=== PATIENT | male | born 1945 | race Caucasian/White ===

== ENCOUNTER 2017-08-17 13:38 | Emergency (ER) | payer MEDICARE, OTHER ==
[2017-08-17] MEDS ORDERED: LORazepam TAB(*) 1 MG PO ONE (15:18)
[2017-08-17] MEDS ORDERED: Ketorolac INJ* 30 MG/ML 1 ML VIAL IM ONE (15:18)
--- NOTE | 2017-08-17 16:06 | RAD ---
Indication: Lumbar spine pain post fall. Comparison: February 04, 2011 CT. Technique: Noncontrast CT lumbar sacral spine. Multiplanar reformation. Report: Negative for paraspinal hematoma. Negative for fracture or spondylolysis at any level. Normal vertebral alignment without spondylolisthesis at any level. T12-L1: Unremarkable disc level for age without acquired spinal stenosis. L1-L2: Unremarkable disc level for age without acquired spinal stenosis. L2-L3: Schmorl node endplate herniations at the inferior endplate of L2. Moderate annular disc bulge. Degenerative spondylosis and facet joint osteoarthritis results in mild to moderate acquired central canal stenosis and mild to moderate bilateral foraminal stenosis. L3-L4: Moderate annular disc bulge. Degenerative spondylosis and facet joint osteoarthritis results in moderately severe acquired central canal stenosis and mild to moderate bilateral foraminal stenosis. L4-L5: Mild annular disc bulge which along with posterior element hypertrophy results in moderate acquired central canal stenosis and mild RIGHT unilateral foraminal stenosis. L5-S1: Unremarkable disc level for age without acquired spinal stenosis. IMPRESSION: 1. No evidence for lumbar sacral spine fracture or traumatic malalignment. 2. Multilevel degenerative spondylosis and facet joint osteoarthritis with associated acquired spinal stenosis as described.
[2017-08-17 19:09] VITALS: BP 141/92
--- NOTE | 2017-08-17 20:39 | ED ---
Brayan Zeng Natalie scribed for Austen Kate MD on 08/17/17 at 1530 . Adult Trauma - HPI Summary HPI Summary: The patient is a 72 y/o M presenting to the ED c/o severe left-sided flank and back pain s/p falling down two flights of stairs last night. The pain was not apparent directly after the fall, but the pain started during the night and persisted through this morning. The pain is rated 9/10 in severity. The pain is alleviated by nothing and aggravated by movement and palpation. He additionally c/o abrasions to forehead. He denies abd pain, neck pain, and LOC. He has not eaten today, hasn't had a BM, but has urinated normally. He was drinking some champagne before falling. - History of Current Complaint Chief Complaint: EDTraumaMultiple Stated Complaint: RIB/HEAD INJURY Time Seen by Provider: 08/17/17 15:01 Hx Obtained From: Patient Mechanism of Injury: Fall - down two flights of stairs Loss of Consciousness: no loss of consciousness Onset/Duration: Started Hours Ago, Still Present Onset of Pain: Hours, Post Accident - fall Onset Severity: Moderate Current Severity: Severe Pain Intensity: 9 Pain Scale Used: 0-10 Numeric Location: Back Aggravating Factor(s): Movement, Palpation Alleviating Factor(s): Nothing Associated Signs & Symptoms: Positive: Negative - neck pain. Negative: Abdominal Pain, Loss of Consciousness - Allergy/Home Medications Allergies/Adverse Reactions: Allergies Allergy/AdvReac Type Severity Reaction Status Date / Time No Known Allergies Allergy Verified 08/17/17 13:50 PMH/Surg Hx/FS Hx/Imm Hx Endocrine/Hematology History: Reports: Other Endocrine/Hematological Disorders - psoriasis Cardiovascular History: Denies: Hx Hypertension - Surgical History Surgery Procedure, Year, and Place: colon polyp removal Infectious Disease History: No Infectious Disease History: Denies: History Other Infectious Disease, Traveled Outside the [place] in Last 30 Days - Family History Known Family History: Positive: Hypertension - Social History Alcohol Use: Daily Alcohol Amount: a couple glasses/night Substance Use Type: Reports: None Smoking Status (MU): Never Smoked Tobacco Review of Systems Negative: Abdominal Pain Musculoskeletal: Negative - neck pain Positive: Other - left sided back pain Positive: Other - abrasion on forehead Neurological: Negative - LOC All Other Systems Reviewed And Are Negative: Yes Physical Exam - Summary Physical Exam Summary: Appearance: The patient is well-nourished in no acute distress and in no acute pain. Skin: The skin is warm and dry and skin color reflects adequate perfusion. HEENT: The head is normocephalic and atraumatic. The pupils are equal and reactive. The conjunctivae are clear and without drainage. Nares are patent and without drainage. Mouth reveals moist mucous membranes and the throat is without erythema and exudate. The external ears are intact. The ear canals are patent and without drainage. The tympanic membranes are intact. Neck: the neck is supple with full range of motion and non-tender. There are no carotid bruits. There is no neck vein distension. Respiratory: Chest is non-tender. Lungs are clear to auscultation and breath sounds are symmetrical and equal. Cardiovascular: Heart is regular rate and rhythm. There is no murmur or rub auscultated. There is no peripheral edema and pulses are symmetrical and equal. Abdomen: The abdomen is soft and non-tender. There are normal bowel sounds heard in all four quadrants and there is no organomegaly palpated. Musculoskeletal: There is tenderness in the lumbar spine area, especially on the left. Extremities are non-tender with full range of motion. There is good capillary refill. There is no peripheral edema or calf tenderness elicited. Neurological: Patient is alert and oriented to person, place and time. The patient has symmetrical motor strength in all four extremities. Cranial nerves are grossly intact. Deep tendon reflexes are symmetrical and equal in all four extremities. Psychiatric: The patient has an appropriate affect and does not exhibit any anxiety or depression. Triage Information Reviewed: Yes Vital Signs On Initial Exam: Initial Vitals Temp Pulse Resp BP Pulse Ox 96.8 F 103 18 148/105 93 08/17/17 13:50 08/17/17 13:50 08/17/17 13:50 08/17/17 13:50 08/17/17 13:50 Vital Signs Reviewed: Yes Diagnostics - Vital Signs Vital Signs Temp Pulse Resp BP Pulse Ox 08/17/17 15:00 80 18 92 08/17/17 14:43 100 22 145/85 93 08/17/17 14:14 106 19 137/83 93 08/17/17 14:12 104 16 93 08/17/17 13:50 96.8 F 103 18 148/105 93 - Laboratory Lab Statement: Any lab studies that have been ordered have been reviewed, and results considered in the medical decision making process. - CT Lumbar/Spine CT CT Interpretation: No Acute Changes - 1. No evidence for lumbar sacral spine fracture or traumatic malalignment. 2. Multilevel degenerative spondylosis and facet joint osteoarthritis with associated acquired spinal stenosis as described. ED physician has reviewed this report. CT Interpretation Completed By: Radiologist Re-Evaluation - Re-Evaluation First Eval Re-Evaluation Time: 17:28 Change: Improved Comment: I spoke with the patient about imaging. He will try to ambulate. Second Eval Re-Evaluation Time: 18:55 Change: Improved Comment: The patient is able to ambulate. He will be discharged home. Adult Trauma Course/Dx - Course Course Of Treatment: Mr. Camarillo fell down multiple steps in the dark last evening after having had several drinks. He went up and down the steps several times subsequent to that and carried a big bag down. He woke up during the night with pain in his back and this morning he was quite ability dictated by significant pain in the left side of his low back. He had no trouble urinating and has not moved his bowels yet and was able to ambulate without difficulty. He does not feel that his legs are weak. He was tender to any leg raise on the left as well as palpation on the left paralumbar area here. He was given Ativan as a muscle relaxer while CT was obtained. CT shows degenerative disc disease however no acute injury. He was able to ambulate much better after the medication and I will prescribe him Ativan as a muscle relaxer for the next couple of days. - Diagnoses Provider Diagnoses: Low back strain Discharge - Sign-Out/Discharge Documenting (check all that apply): Discharge/Admit/Transfer - Discharge Plan Condition: Stable Disposition: HOME Prescriptions: LORazepam TAB(*) [Ativan TAB(*)] 1 mg PO Q6H PRN #20 tab MDD 4 PRN Reason: Pain Patient Education Materials: Low Back Strain (ED) Referrals: Luciano Gunter MD [Primary Care Provider] - 3 Days Additional Instructions: Take Ibuprofen for pain relief as needed. Please take medication as prescribed. Follow up with your primary care provider in 2-3 days. Return to the emergency department for any new or worsening symptoms. - Billing Disposition and Condition Condition: STABLE Disposition: HOME The documentation as recorded by the Brayan tellez Natalie accurately reflects the service I personally performed and the decisions made by me, Austen Kate MD.
== END 2017-08-17 19:31 | disposition home or self-care (01) ==
LOC: ED 13:38
DX: S39.012A Strain of muscle, fascia and tendon of lower back, initial encounter (principal); W10.9XXA Fall (on) (from) unspecified stairs and steps, initial encounter; Y92.9 Unspecified place or not applicable
CPT/HCPCS: 36415; 72131; 86803; 96372; 99283; A9270-GY; J1885